=== PATIENT | male | born 1955 ===

== ENCOUNTER 2017-09-30 09:53 | Outpatient (CLI) | payer OTHER ==
--- NOTE | 2017-09-30 10:26 | RAD ---
PA AND LATERAL CHEST: HISTORY: Cough. FINDINGS: Heart size within normal limits. There are atherosclerotic changes of the aorta. Surgical clips in the left hilar region are noted. The lungs are somewhat hyperexpanded. There is flattening to the h emidiaphragms. IMPRESSION: No active intrathoracic disease. POS: [facility]
== END 2017-09-30 09:54 | disposition home or self-care (01) ==
LOC: RAD-FRANK 09:53
PROVIDERS: ATTEND Nurse Practitioner Family
DX: J45.901 Unspecified asthma with (acute) exacerbation (principal); R05 Cough; I10 Essential (primary) hypertension
CPT/HCPCS: 71020